=== PATIENT | female | born 1960 | race Caucasian/White ===

== ENCOUNTER → 2016-08-07 | Outpatient (CLI) | payer OTHER | END | disposition home or self-care (01) | LOC: LAB.O 15:31 | PROVIDERS: ATTEND Internal Medicine | DX: E04.2 Nontoxic multinodular goiter (principal); R13.10 Dysphagia, unspecified ==

== ENCOUNTER → 2017-07-29 | Outpatient (CLI) | payer OTHER ==
--- NOTE | 2017-07-30 10:52 | MAM ---
EXAM DESCRIPTION: 3D Screening BILATERAL : Digital Mammography. CLINICAL HISTORY: 57 years Female SCREENING . No complaints.. COMPARISON: 2-D digital screening bilateral study 08/19/2015.. No prior reports available. TECHNIQUE: Bilateral CC and MLO projection full-field images, 3-D tomosynthesis digital mammographic technique. CAD not utilized. FINDINGS: The breast parenchymal density pattern is: Scattered areas of fibroglandular density. No skin thickening or nipple retraction. Left axillary lymph node. Retroareolar calcification right breast. No focal, stellate mass or density, focal asymmetry , and no suspicious microcalcifications bilaterally. Stable mammograms compared to prior study, taking into account differences in mammographic technique IMPRESSION: BI-RADS CATEGORY: 2 - BENIGN FINDINGS. FOLLOW UP: Routine digital bilateral screening, one year interval from July 2017. Written communication explaining the IMPRESSION and follow-up, will be mailed to the patient and referring health care provider. According to the [employer], yearly mammograms are recommended starting at age 40 and continuing as long as a woman is in good health. Any breast change noted on a breast self-exam should be reported promptly to the patient's healthcare provider. Breast MRI is recommended for women with an approximately 20-25% or greater lifetime risk of breast cancer, including women with a strong family history of breast or ovarian cancer and women who have been treated for Hodgkin's disease. A negative mammographic report should not delay tissue diagnosis in patients with significant clinical history or physical findings. Extremely dense breast tissue limits the sensitivity of digital mammography. Electronically signed by: José Miguel Rivera MD 07/30/2017 10:50 AM CDT
== END ==
LOC: MAMMO 11:44
PROVIDERS: ATTEND Obstetrics & Gynecology
DX: Z12.31 Encounter for screening mammogram for malignant neoplasm of breast (principal)

== ENCOUNTER → 2018-02-25 | Outpatient (CLI) | payer OTHER ==
--- NOTE | 2018-02-26 12:27 | MRI ---
EXAM DESCRIPTION: Abdomen w/wo Contrast. Magnetic Resonance Imaging. CLINICAL HISTORY: CYST OF PANCREAS COMPARISON: No comparison abdominal imaging available. TECHNIQUE: Multiplanar MRI, multiple sequences, without and with gadolinium IV contrast. No adverse reactions. FINDINGS: A mass is visible at the junction of the body and tail of the pancreas. Predominantly T2 hyperintensity and T1 hypointensity. Measures 3.7 cm craniocaudal and 2.5 cm transverse and 2.5 cm AP. Thin capsule. Septation anteriorly and minimal mural thickening of the superior wall. Hypointense in phase imaging and slightly more increased signal without phase imaging but hypointense relative to the pancreas. Postcontrast shows minimal wall enhancement. Diffusion imaging: Hyperintense ADC image. Decreasing intensity of internal signal from SB 0, to SB 600. Communication with pancreatic duct not definitive. Duct not dilated. The inferior cyst extends inferior to the pancreatic margin. No focal abnormalities in the liver, spleen, kidneys, or adrenal glands. Splenule abutting the splenic hilum. Abdominal wall and included subcutaneous tissues negative. No abnormal enhancement outside of the pancreas. Minimal lumbar scoliosis. Narrowing of some of the included inferior thoracic disc spaces. Common bile duct not dilated. No free fluid in the peritoneal space and no retroperitoneal mass. Stomach is nondistended. IMPRESSION: 1. 3.7 cm predominantly cystic mass at the junction of the body and tail of the pancreas with small anterior septation and possible mural thickening superiorly. Inferiorly extends below the pancreas margin. Decreased hyperintense signal with out of phase imaging compared to the pancreas and decreasing hyperintense signal with diffusion weighted imaging consistent with predominantly cystic composition. Communication with pancreatic duct of uncertain. If there is prior history of pancreatitis, this most likely represents a pseudocyst. Septation and minimal mural thickening suggestive of complex cystic lesion, and nonneoplastic cysts are rare. More common with autosomal dominant polycystic kidney disease, Von Hippel-Lindau syndrome, and cystic fibrosis. Compare to prior studies when available. If stable, consider follow-up MRI in 3-6 month interval. Consider endoscopic ultrasound cyst aspiration, or surgical excision if enlarging. 2. No other intra-abdominal lesions are noted. Electronically signed by: José Miguel Rivera MD 02/26/2018 12:26 PM [employer]
== END ==
LOC: MRI 10:05
PROVIDERS: ATTEND Internal Medicine Gastroenterology
DX: K86.2 Cyst of pancreas (principal)

== ENCOUNTER → 2018-09-14 | Outpatient (CLI) | payer OTHER ==
--- NOTE | 2018-09-15 16:40 | MAM ---
EXAM DESCRIPTION: 3D Screening BILATERAL : Digital Mammography. CLINICAL HISTORY: 58 years Female ANNUAL SCREENING . No complaints or personal history of breast cancer. Remote family history of ovarian cancer. Childbirth. Postmenopausal one year. No HRT. Lifetime risk of developing breast cancer (Tyrer-Cuzick model)(%): 8.3. COMPARISON: Bilateral screening digital breast tomosynthesis 07/29/2017. TECHNIQUE: Bilateral CC and MLO projection full-field images, digital tomosynthesis mammographic technique. Bilateral digital 2-D full-field MLO images. CAD not available for tomosynthesis or 2-D images. FINDINGS: The breast parenchymal density pattern is: Scattered areas of fibroglandular density. No skin thickening or nipple retraction. No new focal, stellate mass or density, focal asymmetry , and no suspicious microcalcifications bilaterally. Stable mammograms compared to prior study. IMPRESSION: BI-RADS CATEGORY: 1 - NEGATIVE FOLLOW UP: Routine digital bilateral screening, one year interval from August 2018 Written communication explaining the findings and follow-up, will be mailed to the patient and referring health care provider. According to the [employer], yearly mammograms are recommended starting at age 40 and continuing as long as a woman is in good health. Any breast change noted on a breast self-exam should be reported promptly to the patient's healthcare provider. Breast MRI is recommended for women with an approximately 20-25% or greater lifetime risk of breast cancer, including women with a strong family history of breast or ovarian cancer and women who have been treated for Hodgkin's disease. A negative mammographic report should not delay tissue diagnosis in patients with significant clinical history or physical findings. Extremely dense breast tissue limits the sensitivity of digital mammography. Electronically signed by: José Miguel Rivera MD 09/15/2018 4:39 PM CDT
== END ==
LOC: MAMMO 15:30
PROVIDERS: ATTEND Obstetrics & Gynecology
DX: Z12.31 Encounter for screening mammogram for malignant neoplasm of breast (principal)

== ENCOUNTER 2018-11-12 23:34 | Emergency (ER) | payer OTHER ==
[2018-11-13] MEDS: SODIUM CHLORIDE 0.9% 1000ML 1,000 ML IVS ONE ×3 (00:01→04:46)
--- NOTE | 2018-11-13 00:03 | ED.PDOC ---
History of Present Illness - General Chief Complaint: Abdominal Pain Stated Complaint: vomiting, pain in stomach Time Seen by Provider: 11/12/18 23:53 - History of Present Illness Initial Comments: 58 yo F PMH HTN DM and recent resection of spleen and part of pancreas presents to ED at bedside c/o abdominal pain chest pain nausea vomiting x 1 day. Also expresses concern for dehydration, inability to tolerate PO and PO medications. Denies fever admits chills nausea vomiting denies diarrhea admits chest pain sob diaphoresis. Symptoms are disturbing appetite and rest. No change in bowel or bladder. Denies drinking or smoking admits FH HTN DM has PMD for follow up Dr. Kwong. No other c/o today. Review of Systems - Review of Systems Constitutional: States: malaise EENTM: States: see HPI Respiratory: States: see HPI Cardiology: States: chest pain Gastrointestinal/Abdominal: States: abdominal pain, nausea, vomiting Genitourinary: States: no symptoms reported Musculoskeletal: States: no symptoms reported Skin: States: no symptoms reported Neurological: States: no symptoms reported Endocrine: States: no symptoms reported Hematologic/Lymphatic: States: no symptoms reported All other Systems: Reviewed and Negative Past Medical History (General) - Patient Medical History Hx Hypertension: Yes Hx Diabetes: Yes Surgical History: other - Vaccination History Hx Tetanus, Diphtheria Vaccination: Yes Hx Influenza Vaccination: Yes Hx Pneumococcal Vaccination: Yes - Social History Hx Tobacco Use: No Hx Alcohol Use: No - Triage Comment ED Triage Comment: Spouse reports pt started vomiting this evening about 1830 and has not been able to keep anything down. Pt taking hydrocodone for pain, as she had spleen and a cyst removed from pancreas in July. Pt unable to take her pain medication. Pt stated she feel s dehydrated and request pain medication. Pt reports she started having abd pain after dinner- they had sen[place] sausage for dinner. Family Medical History - Family History Mother Family History: Unknown Physical Exam - Physical Exam General Appearance: Ill Appearing Eyes, Ears, Nose, Throat Exam: normal ENT inspection Neck: non-tender, full range of motion Respiratory: normal breath sounds Cardiovascular/Chest: regular rate, rhythm, bradycardia Gastrointestinal/Abdominal: soft, tenderness - diffuse Back Exam: normal inspection Extremity: normal range of motion, non-tender Neurologic: no motor/sensory deficits Skin Exam: pallor - pt uncomfortable and dry heaving Progress - Progress Progress: 11/13/18 00:04 A/P-Abdominal Pain Chest Pain Nausea Vomiting 1.iv bolus morphine zofran cbc cmp lipase troponin ekg cxr ct abdomen pelvis telemetry pulse ox reassess 11/13/18 02:38 Laboratory Tests 11/12/18 11/12/18 11/12/18 23:54 23:54 23:54 WBC 17.4 H RBC 4.59 Hgb 12.7 Hct 39.0 MCV 84.9 MCH 27.7 MCHC 32.6 L RDW 17.5 H Plt Count 433 H MPV 9.1 Absolute Neuts (auto) 15.20 H Absolute Lymphs (auto) 1.60 Absolute Monos (auto) 0.50 Absolute Eos (auto) 0.00 Absolute Basos (auto) 0.00 Neutrophils % 87.8 H Lymphocytes % 9.1 L Monocytes % 2.9 Eosinophils % 0.0 L Basophils % 0.2 Sodium 139 Potassium 4.1 Chloride 101 Carbon Dioxide 23 Anion Gap 19.1 H BUN 19 H Creatinine 0.64 BUN/Creatinine Ratio 29.7 H Random Glucose 227 H Serum Osmolality 286.9 Calcium 9.9 Phosphorus Magnesium Total Bilirubin 0.6 AST 18 ALT 16 Alkaline Phosphatase 70 Troponin I < 0.02 Serum Total Protein 7.8 Albumin 4.3 Globulin 3.5 Albumin/Globulin Ratio 1.2 Lipase 374 H Urine Color Urine Appearance Urine pH Ur Specific [place] Urine Protein Urine Glucose (UA) Urine Ketones Urine Blood Urine Nitrite Urine Bilirubin Urine Urobilinogen Ur Leukocyte Esterase Urine RBC Urine WBC Ur Epithelial Cells Urine Bacteria 11/13/18 11/13/18 00:11 00:48 WBC RBC Hgb Hct MCV MCH MCHC RDW Plt Count MPV Absolute Neuts (auto) Absolute Lymphs (auto) Absolute Monos (auto) Absolute Eos (auto) Absolute Basos (auto) Neutrophils % Lymphocytes % Monocytes % Eosinophils % Basophils % Sodium Potassium Chloride Carbon Dioxide Anion Gap BUN Creatinine BUN/Creatinine Ratio Random Glucose Serum Osmolality Calcium Phosphorus 3.7 Magnesium 1.8 Total Bilirubin AST ALT Alkaline Phosphatase Troponin I Serum Total Protein Albumin Globulin Albumin/Globulin Ratio Lipase Urine Color Yellow Urine Appearance Clear Urine pH 6.0 Ur Specific [place] 1.010 Urine Protein Negative Urine Glucose (UA) 100 H Urine Ketones 80 HL Urine Blood Negative Urine Nitrite Negative Urine Bilirubin Negative Urine Urobilinogen 0.2 Ur Leukocyte Esterase Negative Urine RBC 0 Urine WBC 0 Ur Epithelial Cells 0 Urine Bacteria 0 Labs reveal acute pancreatitis and leukocytosis will add more fluids blood cultures antibiotics repeat troponin 11/13/18 02:47 EKG-non specific TW changes No STEMI Prolonged QT Abnormal EKG 11/13/18 02:51 CLINICAL HISTORY: pain vomiting COMPARISON: None. TECHNIQUE: CT ABDOMEN PELVIS WITH IV CONTRAST on 11/12/2018 11:55 PM CDT This exam was performed according to our departmental dose-optimization program, which includes automated exposure control, adjustment of the mA and/or kV according to patient size and/or use of iterative reconstruction technique. FINDINGS: There is a trace left pleural effusion. Abdomen: The liver is normal in appearance. There is no biliary dilatation. Gallbladder is normal in appearance. Spleen is absent. There is moderate inflammation surrounding the pancreas. Pancreatic tail appears to been resected. There is a vague collection of fluid and air just below the left diaphragm measuring 4.9 x 5.3 cm. The adrenal glands and kidneys are unremarkable. Abdominal aorta is normal in course and caliber without aneurysm. There is no free air. There is no retroperitoneal adenopathy. Pelvis: There is no bowel obstruction. Urinary bladder is unremarkable. There is no free fluid. Uterus is normal in size. Appendix is normal. Skeleton: There are no acute osseous findings. No suspicious bony lesions. IMPRESSION: Postoperative changes of distal pancreas resection with extensive surrounding inflammatory changes. Left upper quadrant abscess. Electronically signed by: Faisal King MD 11/13/2018 2:22 AM CDT EXAM DESCRIPTION: Single view of the chest CLINICAL HISTORY:58 years Female, pain vomiting Comparison: None FINDINGS: No focal lung consolidation. No pleural effusion. No pneumothorax. Cardiac and mediastinal silhouette is unremarkable. No acute osseous abnormality. Soft tissues are unremarkable. IMPRESSION: No acute findings. No focal lung consolidation. Electronically signed by: Abner Dawson DO 11/13/2018 2:02 AM CDT 11/13/18 04:02 Laboratory Tests 11/12/18 11/12/18 11/12/18 23:54 23:54 23:54 WBC 17.4 H RBC 4.59 Hgb 12.7 Hct 39.0 MCV 84.9 MCH 27.7 MCHC 32.6 L RDW 17.5 H Plt Count 433 H MPV 9.1 Absolute Neuts (auto) 15.20 H Absolute Lymphs (auto) 1.60 Absolute Monos (auto) 0.50 Absolute Eos (auto) 0.00 Absolute Basos (auto) 0.00 Neutrophils % 87.8 H Lymphocytes % 9.1 L Monocytes % 2.9 Eosinophils % 0.0 L Basophils % 0.2 Sodium 139 Potassium 4.1 Chloride 101 Carbon Dioxide 23 Anion Gap 19.1 H BUN 19 H Creatinine 0.64 BUN/Creatinine Ratio 29.7 H Random Glucose 227 H Serum Osmolality 286.9 Calcium 9.9 Phosphorus Magnesium Total Bilirubin 0.6 AST 18 ALT 16 Alkaline Phosphatase 70 Troponin I < 0.02 Serum Total Protein 7.8 Albumin 4.3 Globulin 3.5 Albumin/Globulin Ratio 1.2 Lipase 374 H Urine Color Urine Appearance Urine pH Ur Specific [place] Urine Protein Urine Glucose (UA) Urine Ketones Urine Blood Urine Nitrite Urine Bilirubin Urine Urobilinogen Ur Leukocyte Esterase Urine RBC Urine WBC Ur Epithelial Cells Urine Bacteria 11/13/18 11/13/18 11/13/18 00:11 00:48 03:00 WBC RBC Hgb Hct MCV MCH MCHC RDW Plt Count MPV Absolute Neuts (auto) Absolute Lymphs (auto) Absolute Monos (auto) Absolute Eos (auto) Absolute Basos (auto) Neutrophils % Lymphocytes % Monocytes % Eosinophils % Basophils % Sodium Potassium Chloride Carbon Dioxide Anion Gap BUN Creatinine BUN/Creatinine Ratio Random Glucose Serum Osmolality Calcium Phosphorus 3.7 Magnesium 1.8 Total Bilirubin AST ALT Alkaline Phosphatase Troponin I < 0.02 Serum Total Protein Albumin Globulin Albumin/Globulin Ratio Lipase Urine Color Yellow Urine Appearance Clear Urine pH 6.0 Ur Specific [place] 1.010 Urine Protein Negative Urine Glucose (UA) 100 H Urine Ketones 80 H Urine Blood Negative Urine Nitrite Negative Urine Bilirubin Negative Urine Urobilinogen 0.2 Ur Leukocyte Esterase Negative Urine RBC 0 Urine WBC 0 Ur Epithelial Cells 0 Urine Bacteria 0 11/13/18 04:[address] Vicky Pelayo about potential admission and spoke to Dr. Hester of General surgery who recommends transfer to site where original surgery was performed, will TRANSFER [facility] [place], [place] pt report Dr. Oh is her surgeon Departure - Departure Clinical Impression: Abdominal abscess Acute pancreatitis Qualifiers: Pancreatitis type: unspecified pancreatitis type Acute pancreatitis complication: unspecified Qualified Code(s): K85.90 - Acute pancreatitis without necrosis or infection, unspecified Leukocytosis Qualifiers: Leukocytosis type: other Qualified Code(s): D72.828 - Other elevated white blood cell count Abdominal pain Qualifiers: Abdominal location: unspecified location Qualified Code(s): R10.9 - Unspecified abdominal pain Nausea & vomiting Qualifiers: Vomiting type: unspecified Vomiting Intractability: non-intractable Qualified Code(s): R11.2 - Nausea with vomiting, unspecified Disposition: Transfer to Hospital Condition: Fair Departure Forms: ED Discharge - Pt. Copy, Patient Portal Self Enrollment Instructions: DI for Abdominal Pain-Adult Referrals: ZAIDA KWONG MD [Primary Care Provider] - 1-2 Weeks Transfer to Outside Facility - Transfer Information Accepting Provider:: Dr. Mclaughlin Accepting Facility: [facility] Reason for Transfer: specialized care not available
[2018-11-13] MEDS: ONDANSETRON INJ 4 MG/2 ML VIAL IV ONE ×4 (00:57→11:29)
[2018-11-13] MEDS: MORPHINE SULFATE INJ 10 MG/ML VIAL IV ONE ×2 (01:37)
--- NOTE | 2018-11-13 02:04 | RAD ---
EXAM DESCRIPTION: Single view of the chest CLINICAL HISTORY:58 years Female, pain vomiting Comparison: None FINDINGS: No focal lung consolidation. No pleural effusion. No pneumothorax. Cardiac and mediastinal silhouette is unremarkable. No acute osseous abnormality. Soft tissues are unremarkable. IMPRESSION: No acute findings. No focal lung consolidation. Electronically signed by: Abner Dawson DO 11/13/2018 2:02 AM CDT
--- NOTE | 2018-11-13 02:23 | CT ---
CLINICAL HISTORY: pain vomiting COMPARISON: None. TECHNIQUE: CT ABDOMEN PELVIS WITH IV CONTRAST on 11/12/2018 11:55 PM CDT This exam was performed according to our departmental dose-optimization program, which includes automated exposure control, adjustment of the mA and/or kV according to patient size and/or use of iterative reconstruction technique. FINDINGS: There is a trace left pleural effusion. Abdomen: The liver is normal in appearance. There is no biliary dilatation. Gallbladder is normal in appearance. Spleen is absent. There is moderate inflammation surrounding the pancreas. Pancreatic tail appears to been resected. There is a vague collection of fluid and air just below the left diaphragm measuring 4.9 x 5.3 cm. The adrenal glands and kidneys are unremarkable. Abdominal aorta is normal in course and caliber without aneurysm. There is no free air. There is no retroperitoneal adenopathy. Pelvis: There is no bowel obstruction. Urinary bladder is unremarkable. There is no free fluid. Uterus is normal in size. Appendix is normal. Skeleton: There are no acute osseous findings. No suspicious bony lesions. IMPRESSION: Postoperative changes of distal pancreas resection with extensive surrounding inflammatory changes. Left upper quadrant abscess. Electronically signed by: Faisal King MD 11/13/2018 2:22 AM CDT
[2018-11-13] MEDS ORDERED: cefOXitin SODIUM 2 GM INJ IVPB ONE (02:43)
[2018-11-13] MEDS ORDERED: SODIUM CHL 0.9% 50ML MIN-BAG+ 50 ML IVPB ONE (02:44)
[2018-11-13] MEDS: cefOXitin SODIUM 2 GM in SODIUM CHL 0.9% 50ML MIN-BAG+ 50 ML IVPB ONE (02:44)
[2018-11-13] MEDS: HYDROmorphone HCL INJ 2 MG/ML VIAL IV ONE ×3 (02:45→11:28)
[2018-11-13 11:53] VITALS: BP 122/87; TEMP 98.4; O2SAT 95
== END 2018-11-13 11:30 | disposition short-term general hospital (02) ==
LOC: ER 23:34
DX: L02.211 Cutaneous abscess of abdominal wall (principal); K85.90 Acute pancreatitis without necrosis or infection, unspecified; D72.828 Other elevated white blood cell count; R11.2 Nausea with vomiting, unspecified; R07.9 Chest pain, unspecified; I10 Essential (primary) hypertension; E11.9 Type 2 diabetes mellitus without complications; Z87.19 Personal history of other diseases of the digestive system; Z98.890 Other specified postprocedural states
CPT/HCPCS: 71045; 74177; 80053; 81001; 83690; 83735; 84100; 84484; 85025; 87040; 93005; J0694; J1170; J2270; J2405; J7030; J7050